=== PATIENT | male | born 1970 | race Two or more races ===

== ENCOUNTER 2025-03-15 19:16 | Inpatient (IN) | payer MEDICARE, MEDICAID ==
[~2025-03-15] VITALS: Ht 170.2 cm; Wt 70.5 kg
--- NOTE | 2025-03-15 19:24 | ECG ---
[facility] Test Date: 2025-03-15 Test Time: 19:16:09 Pat Name: [facility]ER[facility] Department: [facility] ED Patient ID: [id number] Room: 0218T Gender: M Family [employer] Teacher: edlla : 1970 Requested By: HARMONY BLACKWELL Order Number: [id number] Reading MD: Alexandre Hansen Measurements Intervals [place] Rate: 117 P: 34 LA: 162 QRS: 38 QRSD: 93 T: -27 QT: 334 QTc: 466 Interpretive Statements Sinus tachycardia Probable left atrial enlargement Probable left ventricular hypertrophy Borderline T abnormalities, inferior leads Anterior ST elevation, probably due to LVH Baseline wander in lead(s) II,III,aVR,aVF,V1 Electronically Signed On 03-21-2025 21:53:00 PDT by Alexandre Hansen Please click the below link to view image of tracing.
[2025-03-15 19:39] LABS: Hematocrit 38.1 % (41.0-53.0); Hemoglobin 12.8 g/dL (13.5-17.5); Mean Corpuscular Hemoglobin 27.6 pg (28.0-32.0); Mean Corpuscular Volume 81.9 fL (80.0-100.0); Nucleated Red Blood Cells % 0.1 %
[2025-03-15 19:49] LABS: Chloride 100 mmol/L (98-107); Sodium 137 mmol/L (136-145)
--- NOTE | 2025-03-15 19:49 | ED.PDOC ---
SOB-HPI HPI Comments 54-year-old male who came to ER via EMS for shortness a breath. Per EMS, patient is homeless, has a history of hypertension, HIV, and CHF. Has been off his oxygen for the past 2 weeks. Normally on 3 L supplemental oxygen at baseline. Patient coming in for shortness a breath, progressively worsening. Was saturating 84% on room air. Patient is a poor informant. REVIEW OF SYSTEMS: General: No fever, no chills, or fatigue HEENT: No sore throat, no earache, no congestion, no neck pain. Cardiac: No chest pain. No palpitations. Lungs: (+) shortness of breath, no cough. GI: No nausea, no vomiting, no diarrhea, no constipation, no abdominal pain : No dysuria, frequency, or urgency. No hematuria. Musculoskeletal: No joint pain , no joint swelling, no extremity edema. Skin: No rash, no itching. Neuro: No headache, no dizziness, no weakness EXAM: General: Awake, alert and oriented. No acute distress. Skin: Skin in warm, dry and intact. Appropriate color for ethnicity. HEENT: The head is normocephalic and atraumatic. Conjunctivae are clear without exudates or hemorrhage. Sclera is non-icteric. EOM are intact. No signs of nystagmus. Eyelids are normal in appearance without swelling or lesions. Oral mucosa is pink and moist Neck: The neck is supple with normal range of motion. No JVD. Cardiac: Heart rate and rhythm are normal. No murmurs, gallops, or rubs are auscultated. Respiratory: No signs of respiratory distress. Positive rales Abdominal: Abdomen is soft, non-tender without distention. Bowel sounds are present and normoactive in all four quadrants. Extremities: Upper and lower extremities are atraumatic in appearance without deformity or edema. Neurological: The patient is awake, alert and oriented to person, place, and time with normal speech. Speech is clear. There is no facial asymmetry. Chief Complaint: Shortness a breath Time Seen by MD: 19:48 Reviewed notes: Handyman Notes Information Source: Patient, Emergency Med Personnel Mode of Arrival: EMS Past Medical History PAST MEDICAL HISTORY: CHF, HIV, HTN, Liver (Hepatitis-C') Surgical History: Denies all surgeries Family History Family History: Reviewed,noncontributory to illness Social History Smoker: Cigarettes Alcohol: Occasionally Drugs: Marijuana Lives In: Homeless EKG EKG : Pulse Rate (adult): 117 Cardiac Rhythm: ST Comments No STEMI Was a procedure done? Was a procedure done?: No Differential Dx Differential Diagnosis: Asthma, Bronchitis, CHF, COPD, Pneumonia, Respiratory Distress, URI, Other X-Ray, Labs, Meds, VS Vital Signs Date Time Temp Pulse Resp B/P (MAP) Pulse Ox O2 Delivery O2 Flow Rate FiO2 03/15/25 21:21 97.9 113 29 161/110 (127) 95 97.9 03/15/25 19:49 117 03/15/25 19:20 99.1 120 24 182/90 97 99.1 03/15/25 19:20 97 Nasal Cannula* 4 36 03/15/25 19:16 117 Lab Test 03/15/25 22:15 03/15/25 20:31 03/15/25 19:30 Range/Units Troponin I High Sensitivity 45 36 31 </=54 ng/L White Blood Count 10.4 4.4-10.8 10^3/uL Red Blood Count 4.64 4.5-5.90 10^6/uL Hemoglobin 12.8 L 13.5-17.5 g/dL Hematocrit 38.1 L 41.0-53.0 % Mean Corpuscular Volume 81.9 80.0-100.0 fL Mean Corpuscular Hemoglobin 27.6 L 28.0-32.0 pg Mean Corpuscular Hemoglobin Concent 33.7 32.0-36.0 g/dL Red Cell Distribution Width 16.3 H 11.8-14.3 % Platelet Count 416 140-450 10^3/uL Mean Platelet Volume 6.6 L 6.9-10.8 fL Neutrophils (%) (Auto) 74.8 37.0-80.0 % Lymphocytes (%) (Auto) 17.3 10.0-50.0 % Monocytes (%) (Auto) 6.5 0.0-12.0 % Eosinophils (%) (Auto) 0.9 0.0-7.0 % Basophils (%) (Auto) 0.5 0.0-2.0 % Neutrophils # (Auto) 7.8 1.6-8.6 10 ^3/uL Lymphocytes # (Auto) 1.8 0.4-5.4 10 ^3/uL Monocytes # (Auto) 0.7 0-1.3 10 ^3/uL Eosinophils # (Auto) 0.1 0-0.8 10 ^3/uL Basophils # (Auto) 0.1 0-0.2 10 ^3/uL Nucleated Red Blood Cells 0.1 % Sodium Level 137 136-145 mmol/L Potassium Level 3.3 L 3.5-5.1 mmol/L Chloride Level 100 98-107 mmol/L Carbon Dioxide Level 31 20-31 mmol/L Anion Gap 6 5-15 Blood Urea Nitrogen 18 9-23 mg/dL Creatinine 0.57 L 0.700-1.30 mg/dL Glomerular Filtration Rate Calc 117 >90 mL/min BUN/Creatinine Ratio 31.6 H 10.0-20.0 Serum Glucose 111 H 74-106 mg/dL Calcium Level 8.4 L 8.7-10.4 mg/dL B-Type Natriuretic Peptide 296.42 0-100 pg/mL Current Medications Medications (Trade) Dose Ordered Sig/Tor Route Start Time Stop Time Status Last Admin Albuterol (Ventolin Medneb) 2.5 mg ONCE ONCE NEB 03/15/25 19:30 03/15/25 19:31 DC 03/15/25 21:47 Ipratropium [place] (Atrovent Medneb) 0.5 mg ONCE ONCE NEB 03/15/25 19:30 03/15/25 19:31 DC 03/15/25 21:47 CHEST RADIOGRAPH Indication: Shortness of breath Technique: Single frontal view of the chest was obtained COMPARISON: XR CHEST 2 VIEWS on DOS: 03/11/25, XR CHEST 1 VIEW on DOS: 02/26/25 FINDINGS: Cardiac silhouette is enlarged. Diffuse prominence of the pulmonary vasculature and interstitium with patchy ground glass opacity throughout both lungs. Probable trace left pleural fusion Bone density tissues demonstrate no significant abnormality. IMPRESSION: Cardiomegaly with pulmonary vascular congestion and bilateral patchy groundglass opacities. Likely related to alveolar edema although infection could have a katie lar appearance Time of 1ST Reevaluation: 19:46 Reevaluation 1ST: Unchanged Patient Education/Counseling: Need For Follow Up Family Education/Counseling: No Family Present SEPSIS Sepsis Screen Physician Orders Chest Xray 1 View (03/15/25 19:22) Potassium Er Tablet (Klor-Con Tablet) (03/15/25 23:00) Furosemide Injection (Lasix Injection) (03/15/25 23:00) Vital Signs Date Time Temp Pulse Resp B/P (MAP) Pulse Ox O2 Delivery O2 Flow Rate FiO2 03/15/25 21:21 97.9 113 29 161/110 (127) 95 97.9 03/15/25 19:49 117 03/15/25 19:20 99.1 120 24 182/90 97 99.1 03/15/25 19:20 97 Nasal Cannula* 4 36 03/15/25 19:16 117 Laboratory Tests Test 03/15/25 19:30 White Blood Count 10.4 10^3/uL (4.4-10.8) Medications Medications Dose Ordered Sig/Tor Route Start Time Stop Time Status Last Admin Dose Admin Albuterol 2.5 mg ONCE ONCE NEB 03/15/25 19:30 03/15/25 19:31 DC 03/15/25 21:47 Ipratropium [place] 0.5 mg ONCE ONCE NEB 03/15/25 19:30 03/15/25 19:31 DC 03/15/25 21:47 Departure 1 Departure Time of Disposition: 22:55 Impression: Primary Impression: COPD (chronic obstructive pulmonary disease) Additional Impressions: Hypoxia Pulmonary vascular congestion Disposition: ADMITTED INPATIENT Condition: Stable Comments 54-year-old male with a history of COPD, HIV presents with worsening shortness of breath and hypoxia Imaging suggestive of possible pulmonary vascular congestion Patient admitted to hospitalist service for further treatment, evaluation and monitoring. Extensive evaluation was performed in attempt to identify or rule out: (See differential diagnosis section) The following tests were ordered, and results were reviewed by me and discussed with patient: (See diagnostic results section) The following test were independently interpreted by me: EKG I reviewed and agreed with the following test results read by other providers: Chest x-ray I reviewed the following notes from the pt's past medical encounters: N/A Additional information was gathered from interviewing the following independent historians: EMS personnel Discussion of management or test interpretation with external physician/other qualified health healthcare manager: N/A Addressed one or more chronic illnesses with severe exacerbation, progression, or side effects of treatment: COPD Decision regarding hospitalization or escalation of hospital level of care: Risk and benefits of admission for further treatment of patient's condition was considered. Due to patient's current clinical condition, high risk of decline and poor outcome if discharged and need for further inpatient management and monitoring, patient will be admitted to the hospital. Discussed with patient. Drug therapy requiring intensive monitoring for toxicity: IV Lasix Critical Care Note Critical Care Time?: No Stability Stability form required: No Heart Score Heart Score: Heart Score Response (Comments) Value History Moderate Suspicious 1 EKG Repolarization Disturb 1 Age 45-64 1 Risk Factors 1 or 2 risk factors 1 Troponin Normal limit 0 Total 4 I personally scribed for HARMONY BLACKWELL MD ([email or web address]) on 03/15/25 at 19:49. Electronically submitted by Ramon Cabrera ([employer]). I personally scribed for HARMONY BLACKWELL MD ([email or web address]) on 03/15/25 at 20:29. Electronically submitted by Ramon Cabrera ([employer]). HARMONY BLACKWELL MD Mar 15, 2025 19:49
[2025-03-15 19:50] LABS: Anion Gap 6 (5-15)
[2025-03-15 19:52] LABS: Calcium 8.4 mg/dL (8.7-10.4); Carbon Dioxide 31 mmol/L (20-31); Potassium 3.3 mmol/L (3.5-5.1)
[2025-03-15 19:55] LABS: BUN/Creatinine Ratio 31.6 (10.0-20.0); Blood Urea Nitrogen 18 mg/dL (9-23)
[2025-03-15 19:56] LABS: Glucose 111 mg/dL (74-106)
--- NOTE | 2025-03-15 20:16 | DVH ---
CHEST RADIOGRAPH Indication: Shortness of breath Technique: Single frontal view of the chest was obtained COMPARISON: XR CHEST 2 VIEWS on DOS: 03/11/25, XR CHEST 1 VIEW on DOS: 02/26/25 FINDINGS: Cardiac silhouette is enlarged. Diffuse prominence of the pulmonary vasculature and interstitium with patchy ground glass opacity throughout both lungs. Probable trace left pleural fusion Bone density tissues demonstrate no significant abnormality. IMPRESSION: Cardiomegaly with pulmonary vascular congestion and bilateral patchy groundglass opacities. Likely re lated to alveolar edema although infection could have a similar appearance
[2025-03-15] MEDS: ALBUTEROL SULF 2.5 MG/0.5ML(0.5%) NEB SOLN NEB ONE (21:47)
[2025-03-15] MEDS: IPRATROPIUM BROM 0.5 MG/2.5ML INH SOL NEB ONE (21:47)
--- NOTE | 2025-03-15 23:55 | DVHHPRES ---
History of Present Illness Resident Creating Document: MIRIAM MANSFIELD RESIDENT History of Present Illness This is a 54-year-old male with past medical history of hypertension, congestive heart failure, COPD, HIV, hepatitis C to the ER with chief complain of shortness of breaths. The difficulty breathing started suddenly 4 a.m. yesterday morning, associated with nausea, without aggravating or relieving factors. The patient reports he uses 3 L oxygen at home as needed, recently ran out of the oxygen cylinder. Patient reports running out of his home medication for the past 2 wee ks. He also complained of chest pain, described as both sharp and dull, 10 on 10, without aggravating or relieving factors. No history of fever, chills, vomiting. Patient presented with Tachycardia, tachypnea, hypertensive urgency OA. He uses wheelchair for ambulation due to peripheral neuropathy. PMHx: Hypertension, congestive heart failure, HIV, hepatitis-C, chronic peripheral neuropathy (partially wheel chair bound), COPD on home oxygen at 3 L/min PSHx: Appendectomy, gastrostomy, tracheostomy Social history: Reports 2 pack per day for last 40 years. Reports using methamphetamine. Denies alcohol & other recreational drugs. He is unhoused. Full code, next of kin care provider Edwin. Home medication: Biktarvy, Lopressor, amlodipine, albuterol, clonidine, alprazolam, Allergic history: Iodine He was examined at bedside today. He is in apparent respiratory distress and is admitted for further evaluation and management. Review of Systems Respiratory: Shortness of breath, Pleuritic Pain Cardiovascular: Chest Pain Gastrointestinal: Nausea Genitourinary: Incontinence (Intermittent) Allergies: Coded Allergies: Iodine (Verified Allergy, Unknown, 03/15/25) No Known Drug Allergy (Verified Allergy, Unknown, 03/15/25) Exam Vital Signs Vital Signs Date Time Temp Pulse Resp B/P (MAP) Pulse Ox O2 Delivery O2 Flow Rate FiO2 03/15/25 21:21 97.9 113 29 161/110 (127) 95 97.9 03/15/25 21:21 Nasal Cannula* 3 32 Exam General: Patient alert and oriented in person, place and time. Patient following commands. Unkempt. HEENT: Pursed lips. Normocephalic, atraumatic, moist mucous membranes Respiratory/pulmonary: Decreased lungs sounds bilaterally, no associated crackles or wheezes. On nasal cannula at 3 L/min Cardiovascular: S1, S2, S3 heard, without murmurs Abdomen: Diffuse abdominal tenderness on superficial Extremities: There is no peripheral edema present at the lower extremities. Peripheral Pulses: 3+ Radial (R). 3+ Radial (L). 3+ Dorsalis pedis (R). 3+ Dorsalis pedis(L) Skin: Dry, scaly skin Neurological: Reduced power with plantar flexion in bilateral feet. Intact cranial nerves with no focal neurologic deficits Labs/Xrays Labs Test 03/15/25 23:27 03/15/25 22:15 03/15/25 19:30 Range/Units Troponin I High Sensitivity 45 </=54 ng/L White Blood Count 10.4 4.4-10.8 10^3/uL Red Blood Count 4.64 4.5-5.90 10^6/uL Hemoglobin 12.8 L 13.5-17.5 g/dL Hematocrit 38.1 L 41.0-53.0 % Mean Corpuscular Volume 81.9 80.0-100.0 fL Mean Corpuscular Hemoglobin 27.6 L 28.0-32.0 pg Mean Corpuscular Hemoglobin Concent 33.7 32.0-36.0 g/dL Red Cell Distribution Width 16.3 H 11.8-14.3 % Platelet Count 416 140-450 10^3/uL Mean Platelet Volume 6.6 L 6.9-10.8 fL Neutrophils (%) (Auto) 74.8 37.0-80.0 % Lymphocytes (%) (Auto) 17.3 10.0-50.0 % Monocytes (%) (Auto) 6.5 0.0-12.0 % Eosinophils (%) (Auto) 0.9 0.0-7.0 % Basophils (%) (Auto) 0.5 0.0-2.0 % Neutrophils # (Auto) 7.8 1.6-8.6 10 ^3/uL Lymphocytes # (Auto) 1.8 0.4-5.4 10 ^3/uL Monocytes # (Auto) 0.7 0-1.3 10 ^3/uL Eosinophils # (Auto) 0.1 0-0.8 10 ^3/uL Basophils # (Auto) 0.1 0-0.2 10 ^3/uL Nucleated Red Blood Cells 0.1 % Sodium Level 137 136-145 mmol/L Potassium Level 3.3 L 3.5-5.1 mmol/L Chloride Level 100 98-107 mmol/L Carbon Dioxide Level 31 20-31 mmol/L Anion Gap 6 5-15 Blood Urea Nitrogen 18 9-23 mg/dL Creatinine 0.57 L 0.700-1.30 mg/dL Glomerular Filtration Rate Calc 117 >90 mL/min BUN/Creatinine Ratio 31.6 H 10.0-20.0 Serum Glucose 111 H 74-106 mg/dL Calcium Level 8.4 L 8.7-10.4 mg/dL B-Type Natriuretic Peptide 296.42 0-100 pg/mL SEPSIS Sepsis Screen Date sepsis recognized/suspect: Mar 15, 2025 Time Sepsis recognized/suspect: 2120 Recent Procedure: No On Antibiotic Therapy: No Respiratory Rate >20: No Heart Rate >90: No Temp<36 C (96.8 F) or >38.3 C: No SBP <90 or MAP <65 mmHG: No New Acute Mental Status Change: No Is the patient on CPAP, BIPAP,: No Physician Orders Chest Xray 1 View (03/15/25 19:22) Covid19 Antigen Najma (03/15/25 ) Rapid Influenza A&B (03/15/25 22:53) Hepatic Panel (03/15/25 23:19) C-Reactive Protein (03/15/25 23:19) Drug Screen (03/15/25 23:19) Hemoglobin A1c (03/15/25 23:19) Lipase (03/15/25 23:19) Lactic Acid W/ Reflex Order (03/15/25 23:19) Lipid Panel (03/15/25 23:19) Magnesium (03/15/25 23:19) Phosphorus (03/15/25 23:19) PTPTT (03/15/25 23:19) Thyroid Stimulating Hormone (03/15/25 23:19) Urinalysis (03/15/25 23:19) Vitamin D, 25-Hydroxy (03/15/25 23:19) Vitamin B12 (03/15/25 23:19) Admit (03/15/25 23:51) Allergies (03/15/25 23:51) Code Status (03/15/25 23:51) Oxygen Per Hour (03/15/25 23:51) Ondansetron Hcl (Zofran) (03/16/25 00:00) Complete Blood Count (03/16/25 04:00) Comprehensive Metabolic Panel (03/16/25 04:00) Cardiac Diet-2gna,Lofat,Lochol (03/16/25 Breakfast) Echo 2d Mode Cardiac Dop (03/15/25 23:51) Condition: Serious (03/15/25 23:51) Lovenox 40mg (03/16/25 00:00) Vital Signs Date Time Temp Pulse Resp B/P (MAP) Pulse Ox O2 Delivery O2 Flow Rate FiO2 03/15/25 21:21 97.9 113 29 161/110 (127) 95 97.9 03/15/25 21:21 Nasal Cannula* 3 32 03/15/25 19:49 117 03/15/25 19:20 99.1 120 24 182/90 97 99.1 03/15/25 19:20 97 Nasal Cannula* 4 36 03/15/25 19:16 117 Laboratory Tests Test 03/15/25 19:30 03/15/25 23:27 White Blood Count 10.4 10^3/uL (4.4-10.8) Lactic Acid Level Pending Medications Medications Dose Ordered Sig/Tor Route Start Time Stop Time Status Last Admin Dose Admin Albuterol 2.5 mg ONCE ONCE NEB 03/15/25 19:30 03/15/25 19:31 DC 03/15/25 21:47 2.5 MG Ipratropium [place] 0.5 mg ONCE ONCE NEB 03/15/25 19:30 03/15/25 19:31 DC 03/15/25 21:47 0.5 MG Assessment/Plan Assessment/Plan Acute hypoxic respiratory failure Sepsis due to pneumonia Gram-negative/ Gram-positive Acute COPD exacerbation Rapid influenza, COVID-19 serology ordered Blood culture, sputum culture ordered IV ceftriaxone 1 g, azithromycin 500 mg daily Methylprednisolone 40 mg daily Med neb treatment with ipratropium bromide and levoalbuterol Acute on chronic heart failure (pending LVEF) CXR shows cardiomegaly with vascular congestion and bilateral ground-glass opacities EKG shows sinus tachycardia with left ventricular hypertrophy Elevated BNP Echo ordered IV furosemide 20 mg daily., monitor response with strict I&O Monitor on telemetry Normocytic normochromic anemia Ferritin, iron panel, stool occult blood, reticulocyte, haptoglobin Hypokalemia Potassium supplemented Monitor BMP HIV Patient on Biktarvy at home, medication reconciled CD4 count ordered Hypertensive emergency Essential hypertension Amlodipine 5 mg daily Continue monitoring blood pressure History of Peripheral neuropathy partially wheelchair bound Homelessness Evaluate need of PT and marketing services vice president (patient refuses to go to a group home) DIET: Cardiac diet DVT PROPHYLAXIS: Lovenox GI PROPHYLAXIS: Protonix CODE STATUS: Goals of care discussed with patient at bedside for more than 37 minutes. Full code DISPOSITION: Telemetry Patient's status and plan discussed with the patient and nurses. Case discussed with Dr. Guerrero Plan discussed with: Patient, Other (Nurses) My Orders Orders - MIRIAM MANSFIELD RESIDENT Procedure Category Date Status Time Hepatic Panel LAB 03/15/25 In Process 23:19 C-Reactive Protein LAB 03/15/25 In Process 23:19 Drug Screen LAB 03/15/25 Logged 23:19 Hemoglobin A1c LAB 03/15/25 In Process 23:19 Lipase LAB 03/15/25 In Process 23:19 Lactic Acid W/ Reflex LAB 03/15/25 In Process Order 23:19 Lipid Panel LAB 03/15/25 In Process 23:19 Magnesium LAB 03/15/25 In Process 23:19 Phosphorus LAB 03/15/25 In Process 23:19 PTPTT LAB 03/15/25 In Process 23:19 Thyroid Stimulating LAB 03/15/25 In Process Hormone 23:19 Urinalysis LAB 03/15/25 Logged 23:19 Vitamin D, 25-Hydroxy LAB 03/15/25 In Process 23:19 Vitamin B12 LAB 03/15/25 In Process 23:19 Admit ADMIT 03/15/25 Verified 23:51 Allergies KATTY 03/15/25 Verified 23:51 Code Status CODE 03/15/25 Verified 23:51 Oxygen Per Hour RT 03/15/25 Verified 23:51 Ondansetron Hcl PHA 03/16/25 Verified (Zofran) 00:00 Complete Blood Count LAB 03/16/25 Verified 04:00 Comprehensive LAB 03/16/25 Verified Metabolic Panel 04:00 Cardiac DIET 03/16/25 Verified Diet-2gna,Lofat,Lochol Breakfast Echo 2d Mode Cardiac US 03/15/25 Verified DOP 23:51 Condition: Serious KATTY 03/15/25 Verified 23:51 Lovenox 40mg PHA 03/16/25 Verified 00:00 Date of Service: Mar 15, 2025 Billing Provider: ALESSANDRO GUERRERO MD Common Visit Codes: [id number] INP/OBS CARE (HIGH) Secondary Visit Codes: [id number] CARE PLAN 30 MINUTES MIRIAM MANSFIELD RESIDENT Mar 15, 2025 23:55 JOSE A RAYMOND RESIDENT Mar 16, 2025 01:17
[2025-03-15 23:56] LABS: INR 0.97 (0.9-1.15); Partial Thromboplastin Time 25.9 SEC (24.5-34.5); Prothrombin Time 10.3 sec (9.3-11.8)
[2025-03-16] VITALS (12 sets, daily range): BP systolic 135–159; BP diastolic 78–98; PULSE 93–111; RESP 16–22; TEMP 97.9–98.4; O2SAT 94–100
[2025-03-16] LABS: Alanine Aminotransferase 23.0 U/L (7-40); Albumin 3.3 g/dL (3.2-4.8); Alkaline Phosphatase 110.0 U/L (46-116); Bilirubin, Direct 0.1 mg/dL (<0.3); Bilirubin, Total 0.4 mg/dL (0.2-1.0); Cholesterol 174.0 mg/dL (< 200); Magnesium 1.9 mg/dL (1.6-2.6); Total Protein 6.3 g/dL (5.7-8.2); Triglycerides 47.0 mg/dL (< 150)
[2025-03-16] MEDS: ONDANSETRON HCL 4 MG/2 ML VIAL IV SCH
[2025-03-16 00:08] LABS: HDL Cholesterol 64.0 mg/dL (40-59)
[2025-03-16] MEDS ORDERED: MET50T PO (00:15)
[2025-03-16] MEDS ORDERED: BICT1TAB PO (00:15)
[2025-03-16 00:31] LABS: Lipase 28.0 U/L (12-53)
[2025-03-16] MEDS: FUROSEMIDE 40 MG/4 ML VIAL IV ONE ×2 (00:42)
[2025-03-16] MEDS: POTASSIUM CHL 20 Meq TABLET PO ONE (00:43)
[2025-03-16 01:01] LABS: Base Excess 6.2 mmol/L (-2.0-3.0)
[2025-03-16] MEDS: methylPREDNISolone SOD SUCC 40 MG/ML VL IV ONE (01:11)
[2025-03-16] MEDS: ENOXAPARIN SOD 40 MG/0.4 ML SYRINGE SC ONE (01:12)
[2025-03-16 01:15] LABS: Iron 25.0 ug/dL (65-175)
[2025-03-16 01:16] LABS: Total Iron Binding Capacity 308.0 ug/dL (250-425)
[2025-03-16 01:22] LABS: Urine Protein, UAD 2+ (Negative)
[2025-03-16] MEDS: AZITHROMYCIN 500MG/ 250ML 250 ML IV ONE (01:58)
[2025-03-16 03:17] LABS: Amphetamine Screen, Urine Pos (NEGATIVE); Barbiturate Scree,Urine Neg (NEGATIVE); Benzodiazephine Screen, Urine Neg (NEGATIVE); Cannabinoid Screen, Urine Pos (NEGATIVE); Cocaine Screen, Urine Neg (NEGATIVE); Opiate Scree,Urine Neg (NEGATIVE); Phencyclidine Screen, Urine Neg (NEGATIVE)
[2025-03-16 04:04] LABS: Alanine Aminotransferase 26 U/L (7-40); Albumin 3.4 g/dL (3.2-4.8); Alkaline Phosphatase 108 U/L (46-116); Anion Gap 7 (5-15); BUN/Creatinine Ratio 23.4 (10.0-20.0); Blood Urea Nitrogen 15 mg/dL (9-23); Potassium 3.5 mmol/L (3.5-5.1); Sodium 137 mmol/L (136-145); Total Protein 6.6 g/dL (5.7-8.2)
[2025-03-16 04:05] LABS: Bilirubin, Total 0.5 mg/dL (0.2-1.0); Calcium 8.6 mg/dL (8.7-10.4); Carbon Dioxide 32 mmol/L (20-31); Chloride 98 mmol/L (98-107); Glucose 136 mg/dL (74-106)
[2025-03-16 04:42] LABS: Hematocrit 38.3 % (41.0-53.0); Hemoglobin 12.6 g/dL (13.5-17.5); Mean Corpuscular Hemoglobin 27.1 pg (28.0-32.0); Mean Corpuscular Volume 82.3 fL (80.0-100.0); Nucleated Red Blood Cells % 0.1 %
[2025-03-16] MEDS: LEVALBUTEROL HCL 1.25 MG/3 ML NEB NEB SCH (05:18)
[2025-03-16] MEDS: IPRATROPIUM BROM 0.5 MG/2.5ML INH SOL NEB SCH (05:18)
--- NOTE | 2025-03-16 05:49 | DVH ---
CHEST RADIOGRAPH Indication: Acute respiratory failure Technique: Single frontal view of the chest was obtained COMPARISON: XY CHEST XRAY 1 VIEW on DOS: 03/15/25, XR CHEST 2 VIEWS on DOS: 03/11/25, XR CHEST 1 VIEW o n DOS: 02/26/25 FINDINGS: Lines and Tubes: None Lungs: Stable appearing diffuse increased prominence of the pulmonary vasculature and bilateral perih ilar pulmonary airspace disease. Pleura: No effusion. No pneumothorax. Cardiomediastinal contours: Cardiomegaly. Bones: Unremarkable IMPRESSION: 1. Stable diffuse increased prominence of the pulmonary vasculature and bilateral perihilar pulmonary airspace disease. 2. Cardiomegaly.
[2025-03-16 05:59] LABS: COVID19 ANTIGEN SOFIA FIA NEGATIVE (NEGATIVE)
[2025-03-16] MEDS ORDERED: FUROSEMIDE 40 MG/4 ML VIAL IV SCH (06:00)
[2025-03-16] MEDS ORDERED: FUROSEMIDE 20 MG/2 ML VIAL IV SCH (10:00)
[2025-03-16] MEDS: Bictegravir-Emtricitabine-Teno (Biktarvy 50-200-25 mg) TABLET PO SCH (10:00)
[2025-03-16] MEDS: ERGOCALCIFEROL 50,000 UNIT(1.25MG) CAP PO SCH (10:22)
[2025-03-16] MEDS: FUROSEMIDE 20 MG/2 ML VIAL IV SCH (10:24)
--- NOTE | 2025-03-16 13:42 | DVHPN2 ---
Reviewed: Care Plan, H&P, Labs, Medications, Previous Orders, Radiology Changes from previous H/P or p: No Changes Cardiovascular: Chest Pain Respiratory: Shortness of breath, Pleuritic Pain Gastrointestinal: Nausea Genitourinary: Incontinence (Intermittent) Objective Vitals Vital Signs Date Time Temp Pulse Resp B/P (MAP) Pulse Ox O2 Delivery O2 Flow Rate FiO2 03/16/25 11:22 97.9 94 18 135/85 (102) 99 97.9 03/16/25 11:01 Nasal Cannula* 2 28 Intake/Output Intake and Output 03/16/25 07:00 Intake Total 350 ml Output Total 1050 ml Balance -700 ml Intake IV Total 350 ml Output Urine Total 1050 ml Medications Current Medications Medications Dose Ordered Sig/Tor Route Start Time Stop Time Status Last Admin Dose Admin Ondansetron HCl 4 mg Q6HR IV 03/16/25 00:00 Enoxaparin Sodium 40 mg DAILY SC 03/17/25 10:00 Ceftriaxone Sodium 50 ml @ 100 mls/hr DAILY@09 IV 03/17/25 09:00 Azithromycin 250 ml @ 125 mls/hr DAILY IV 03/17/25 10:00 Levalbuterol HCl 1.25 mg Q6HR NEB 03/16/25 00:00 03/16/25 11:01 1.25 MG Ipratropium [place] 0.5 mg Q6HWA NEB 03/16/25 06:00 03/16/25 11:01 0.5 MG Methylprednisolone Sodium Succinate 40 mg DAILY IV 03/17/25 10:00 Amlodipine Besylate 5 mg DAILY PO 03/17/25 10:00 Patient Own Medication 1 tab DAILY PO 03/16/25 10:00 Ergocalciferol 50,000 unit Sa PO 03/16/25 10:00 03/16/25 10:22 50,000 UNIT Furosemide 20 mg DAILY IV 03/16/25 10:00 03/16/25 10:24 20 MG Laboratory Results Laboratory Tests 03/16/25 03:26 Chemistry Test 03/15/25 19:30 03/15/25 23:27 03/16/25 03:26 Calcium Level 8.4 mg/dL (8.7-10.4) L 8.6 mg/dL (8.7-10.4) L Albumin 3.3 g/dL (3.2-4.8) 3.4 g/dL (3.2-4.8) Magnesium Level 1.9 mg/dL (1.6-2.6) Phosphorus Level 4.2 mg/dL (2.4-5.1) Total Protein 6.3 g/dL (5.7-8.2) 6.6 g/dL (5.7-8.2) Coagulation Test 03/15/25 23: Prothrombin Time 10.3 sec (9.3-11.8) Prothrombin Time INR 0.97 (0.9-1.15) Activated Partial Thromboplast Time 25.9 SEC (24.5-34.5) Lipid panel Test 03/15/25 23: Cholesterol Level 174 mg/dL (< 200) HDL Cholesterol 64 mg/dL (40-59) H Lipase 28 U/L (12-53) Triglycerides Level 47 mg/dL (< 150) Cardiac Markers Test 03/15/25 19:30 B-Type Natriuretic Peptide 296.42 pg/mL (0-100) LFT Test 03/15/25 23:27 03/16/25 03:26 Alanine Aminotransferase (ALT) 23 U/L (7-40) 26 U/L (7-40) Alkaline Phosphatase 110 U/L (46-116) 108 U/L (46-116) Aspartate Amino Transferase (AST) 30 U/L (13-40) 30 U/L (13-40) Direct Bilirubin 0.1 mg/dL (<0.3) Total Bilirubin 0.4 mg/dL (0.2-1.0) 0.5 mg/dL (0.2-1.0) HgA1c, TSH Test 03/15/25 23:27 Hemoglobin A1c 5.8 % A1C (<5.7) H Thyroid Stimulating Hormone (TSH) 0.80 uIU/mL (0.55-4.78) Urinalysis Test 03/16/25 00:08 Urine Color Light-yellow (Yellow) Urine Clarity Clear (Clear) Urine pH 7.0 (5.0-9.0) Urine Specific [place] 1.014 (1.001-1.035) Urine Protein 2+ (Negative) H Urine Ketones Negative (Negative) Urine Blood 1+ /uL (Negative) H Urine Nitrite Negative (Negative) Urine Bilirubin Negative (Negative) Urine Urobilinogen Normal mg/dL (Negative) Urine Leukocyte Esterase Negative /uL (Negative) Urine RBC 11 /hpf (0 - 3) Urine Microscopic WBC 2 /HPF (0-3) Urine Squamous Epithelial Cells Few /hpf (<5) Urine Bacteria None seen /hpf (None Seen) Urine Glucose Normal mg/dL (Normal) Blood Gas Results Test 03/16/25 00:53 Arterial Blood pH 7.392 (7.350-7.450) FiO2 % 28.0 Labs and/or images reviewed: Labs reviewed by me, Image(s) reviewed by me Assessment/Plan Assessment/Plan Sepsis secondary to community-acquired pneumonia Gram-positive versus Gram- negative: Rocephin azithromycin Acute on chronic congestive heart failure exacerbation Acute hypoxic respiratory failure: Oxygen by nasal cannula Acute COPD exacerbation: Albuterol Atrovent Solu-Medrol Use of home oxygen 3 L/min Anemia Hypokalemia HIV Hypertensive emergency History of peripheral neuropathy partially wheelchair-bound Homeless Polysubstance abuse: Amphetamine marijuana Time spent 70 minutes Advanced care planning time 20 minutes Patient is full code Plan discussed with: Patient Date of Service: Mar 16, 2025 Billing Provider: ALLYN GREWAL MD Common Visit Codes: [id number] CARE 30-74 MIN ALLYN GREWAL MD Mar 16, 2025 13:42
[2025-03-17] VITALS (17 sets, daily range): BP systolic 133–164; BP diastolic 77–94; PULSE 85–103; RESP 16–22; TEMP 97.9–98.8; O2SAT 96–100
[2025-03-17] MEDS: PANTOPRAZOLE 40 MG TAB PO ONE (00:49)
--- NOTE | 2025-03-17 06:11 | DVH ---
CHEST RADIOGRAPH Indication: Acute respiratory failure Technique: Single frontal view of the chest was obtained Comparison: XY CHEST XRAY 1 VIEW on DOS: 03/16/25, XY CHEST XRAY 1 VIEW on DOS: 03/15/25, XR CHEST 2 EWS on DOS: 03/11/25, XR CHEST 1 VIEW on DOS: 02/26/25, XY CHEST XRAY 1 VIEW on DOS: 03/16/25 FINDINGS: Lines and Tubes: None Lungs: Stable appearing diffuse increased prominence of the pulmonary vasculature and bilateral perih ilar pulmonary airspace disease. Pleura: No effusion. No pneumothorax. Cardiomediastinal contours: Cardiomegaly. Bones: Unremarkable IMPRESSION: 1. Stable diffuse increased prominence of the pulmonary vasculature and bilateral perihilar pulmonary airspace disease. 2. Cardiomegaly.
--- NOTE | 2025-03-17 08:41 | DVHPN2 ---
Reviewed: Care Plan, H&P, Labs, Medications, Previous Orders, Radiology Changes from previous H/P or p: No Changes Cardiovascular: Chest Pain Respiratory: Shortness of breath, Pleuritic Pain Gastrointestinal: Nausea Genitourinary: Incontinence (Intermittent) Objective Vitals Vital Signs Date Time Temp Pulse Resp B/P (MAP) Pulse Ox O2 Delivery O2 Flow Rate FiO2 03/17/25 06:03 92 18 100 03/17/25 05:52 Nasal Cannula* 3 32 03/17/25 05:14 98.2 137/84 (101) 98.2 Intake/Output Intake and Output 03/17/25 07:00 Intake Total 2100 ml Output Total 1950 ml Balance 150 ml Intake Oral 2100 ml Output Urine Total 1950 ml # Voids 7 Medications Current Medications Medications Dose Ordered Sig/Tor Route Start Time Stop Time Status Last Admin Dose Admin Ondansetron HCl 4 mg Q6HR IV 03/16/25 00:00 03/17/25 00:41 4 MG Enoxaparin Sodium 40 mg DAILY SC 03/17/25 10:00 Ceftriaxone Sodium 50 ml @ 100 mls/hr DAILY@09 IV 03/17/25 09:00 Azithromycin 250 ml @ 125 mls/hr DAILY IV 03/17/25 10:00 Levalbuterol HCl 1.25 mg Q6HR NEB 03/16/25 00:00 03/17/25 05:54 1.25 MG Ipratropium [place] 0.5 mg Q6HWA NEB 03/16/25 06:00 03/17/25 00:07 0.5 MG Methylprednisolone Sodium Succinate 40 mg DAILY IV 03/17/25 10:00 Amlodipine Besylate 5 mg DAILY PO 03/17/25 10:00 Patient Own Medication 1 tab DAILY PO 03/16/25 10:00 Ergocalciferol 50,000 unit Sa PO 03/16/25 10:00 03/16/25 10:22 50,000 UNIT Furosemide 20 mg DAILY IV 03/16/25 10:00 03/16/25 10:24 20 MG Laboratory Results Laboratory Tests 03/16/25 03:26 Urinalysis Test 03/16/25 00:08 Urine Color Light-yellow (Yellow) Urine Clarity Clear (Clear) Urine pH 7.0 (5.0-9.0) Urine Specific [place] 1.014 (1.001-1.035) Urine Protein 2+ (Negative) H Urine Ketones Negative (Negative) Urine Blood 1+ /uL (Negative) H Urine Nitrite Negative (Negative) Urine Bilirubin Negative (Negative) Urine Urobilinogen Normal mg/dL (Negative) Urine Leukocyte Esterase Negative /uL (Negative) Urine RBC 11 /hpf (0 - 3) Urine Microscopic WBC 2 /HPF (0-3) Urine Squamous Epithelial Cells Few /hpf (<5) Urine Bacteria None seen /hpf (None Seen) Urine Glucose Normal mg/dL (Normal) Microbiology Microbiology Date/Time Source Procedure Growth Status 03/16/25 00:57 Blood Blood Culture - Preliminary NO GROWTH AFTER 24 HOURS OF INCUBATION. Resulted Labs and/or images reviewed: Labs reviewed by me, Image(s) reviewed by me Assessment/Plan Assessment/Plan Sepsis secondary to community-acquired pneumonia Gram-positive versus Gram- negative: Rocephin azithromycin Acute on chronic congestive heart failure exacerbation Acute hypoxic respiratory failure: Oxygen by nasal cannula Acute COPD exacerbation: Albuterol Atrovent Solu-Medrol Use of home oxygen 3 L/min Anemia Hypokalemia HIV Hypertensive emergency History of peripheral neuropathy partially wheelchair-bound Homeless Polysubstance abuse: Amphetamine marijuana Time spent 55 minutes Advanced care planning time 20 minutes Patient is full code Plan discussed with: Patient My Orders Orders - ALLYN GREWAL MD Procedure Category Date Status Time * [employer] Art [employer] CONS 03/16/25 Transmitted Consult Date of Service: Mar 17, 2025 Billing Provider: ALLYN GREWAL MD Common Visit Codes: [id number] INP/OBS CARE(HIGH) ALLYN GREWAL MD Mar 17, 2025 08:41
--- NOTE | 2025-03-17 09:37 | DVHSR ---
APPROVED REPORT EXAM: Two-dimensional and M-mode echocardiogram with Doppler and color Doppler. Blood Pressure: 138/85 mmHg INDICATION Chest Pain W/ history of CHF RISK FACTORS Height: 5' 7", Weight: 121 DIMENSIONS LVDd4.5 (3.8-5.7cm)LA (2D)3.8 (1.9-4.0cm)Aortic Root4.1 (2.0-3.7cm) LVDs3.6 (2.5-4.0cm)LA (MM) (1.9-4.0cm)Aortic Cusp Exc2.0 (1.5-2.0cm) EF (%) 50.0 (55-70%)Rt. Atrium3.5 (1.9-4.0cm)Asc. Aorta cm IVSd1.3 (0.7-1.1cm)RV (D) (1.8-2.4cm) PWd1.1 (0.7-1.1cm) Mitral Valve MitralMitral Stenosis E wave0.60m/sMV Mean GR.mmHg A wave1.00m/sMV Peak GR.mmHg E/A ratio0.62D MVAcm2 Aortic Valve Aortic ValveAortic Stenosis V10.90m/Thang Mean GR.6mmHg V21.60m/Thang Peak GR.11mmHg LVOT Diameter2.8 (1.8-2.4cm)Doppler AVA3.46cm2 Pulmonic Valve V20.70m/s Conclusion lvef 50% moderate LVH bicuspid aortic valve noted, mild aortic sclerosis and thickening, pt should have routine surveillanc e of this along with first deg relatives
[2025-03-17] MEDS: methylPREDNISolone SOD SUCC 40 MG/ML VL IV SCH (10:15)
[2025-03-17] MEDS: ENOXAPARIN SOD 40 MG/0.4 ML SYRINGE SC SCH (10:20)
[2025-03-17] MEDS: AZITHROMYCIN 500MG/ 250ML 250 ML IV SCH (10:46)
[2025-03-18] VITALS (15 sets, daily range): BP systolic 132–157; BP diastolic 77–97; PULSE 12–94; RESP 12–99; TEMP 97.6–98.4; O2SAT 94–100
--- NOTE | 2025-03-18 05:46 | DVH ---
CHEST RADIOGRAPH Indication: Acute respiratory failure Technique: Single frontal view of the chest was obtained COMPARISON: XY CHEST XRAY 1 VIEW on DOS: 03/17/25, XY CHEST XRAY 1 VIEW on DOS: 03/16/25, XY CHEST XRAY 1 VIEW on DOS: 03/15/25, XR CHEST 2 VIEWS on DOS: 03/11/25, CT ANGIO CHEST - PULMONARY on DOS: 02/26/25 FINDINGS: Lines and Tubes: None Lungs: Diffuse fibrotic appearing increased prominence of the pulmonary interstitium. Increased promi nence of the bilateral perihilar vascular structures. No definite evidence of focal consolidation. Pleura: No effusion. No pneumothorax. Cardiomediastinal contours: Cardiomegaly. Bones: Unremarkable IMPRESSION: 1. Cardiomegaly with findings suggestive of pulmonary vascular congestion. 2. Fibrotic appearing diffuse increased prominence of the pulmonary interstitium. 3. Cardiomegaly.
[2025-03-18] MEDS: LEVALBUTEROL HCL 1.25 MG/3 ML NEB NEB SCH (06:33)
--- NOTE | 2025-03-18 10:45 | DVHPN2 ---
Reviewed: Care Plan, H&P, Labs, Medications, Previous Orders, Radiology Changes from previous H/P or p: No Changes Cardiovascular: Chest Pain Respiratory: Shortness of breath, Pleuritic Pain Gastrointestinal: Nausea Genitourinary: Incontinence (Intermittent) Objective Vitals Vital Signs Date Time Temp Pulse Resp B/P (MAP) Pulse Ox O2 Delivery O2 Flow Rate FiO2 03/18/25 09:12 157/97 03/18/25 09:00 98.0 76 12 98 98.0 03/18/25 06:36 Nasal Cannula 2.0 03/18/25 06:36 28 Intake/Output Intake and Output 03/18/25 07:00 Intake Total 3100 ml Output Total 2550 ml Balance 550 ml Intake Oral 3050 ml IV Total 50 ml Output Urine Total 2550 ml # Voids 5 Medications Current Medications Medications Dose Ordered Sig/Tor Route Start Time Stop Time Status Last Admin Dose Admin Ondansetron HCl 4 mg Q6HR IV 03/16/25 00:00 03/18/25 05:25 4 MG Enoxaparin Sodium 40 mg DAILY SC 03/17/25 10:00 03/18/25 09:11 40 MG Ceftriaxone Sodium 50 ml @ 100 mls/hr DAILY@09 IV 03/17/25 09:00 03/18/25 09:10 100 MLS/HR Azithromycin 250 ml @ 125 mls/hr DAILY IV 03/17/25 10:00 03/17/25 10:46 125 MLS/HR Ipratropium [place] 0.5 mg Q6HWA NEB 03/16/25 06:00 03/18/25 06:33 0.5 MG Methylprednisolone Sodium Succinate 40 mg DAILY IV 03/17/25 10:00 03/18/25 09:12 40 MG Amlodipine Besylate 5 mg DAILY PO 03/17/25 10:00 03/18/25 09:12 5 MG Patient Own Medication 1 tab DAILY PO 03/16/25 10:00 Ergocalciferol 50,000 unit Sa PO 03/16/25 10:00 03/16/25 10:22 50,000 UNIT Furosemide 20 mg DAILY IV 03/16/25 10:00 03/18/25 09:11 20 MG Levalbuterol HCl 1.25 mg Q6HWA NEB 03/18/25 06:00 Laboratory Results Laboratory Tests 03/16/25 03:26 Urinalysis Test 03/16/25 00:08 Urine Color Light-yellow (Yellow) Urine Clarity Clear (Clear) Urine pH 7.0 (5.0-9.0) Urine Specific [place] 1.014 (1.001-1.035) Urine Protein 2+ (Negative) H Urine Ketones Negative (Negative) Urine Blood 1+ /uL (Negative) H Urine Nitrite Negative (Negative) Urine Bilirubin Negative (Negative) Urine Urobilinogen Normal mg/dL (Negative) Urine Leukocyte Esterase Negative /uL (Negative) Urine RBC 11 /hpf (0 - 3) Urine Microscopic WBC 2 /HPF (0-3) Urine Squamous Epithelial Cells Few /hpf (<5) Urine Bacteria None seen /hpf (None Seen) Urine Glucose Normal mg/dL (Normal) Microbiology Microbiology Date/Time Source Procedure Growth Status 03/16/25 12:00 Nose MRSA Screen - Final Complete 03/16/25 00:57 Blood Blood Culture - Preliminary NO GROWTH AFTER 48 HOURS OF INCUBATION. Resulted 03/16/25 00:08 Voided Urine Urine Culture - Final Complete Labs and/or images reviewed: Labs reviewed by me, Image(s) reviewed by me Assessment/Plan Assessment/Plan Sepsis secondary to community-acquired pneumonia Gram-positive versus Gram- negative: Rocephin azithromycin Acute on chronic congestive heart failure exacerbation Acute hypoxic respiratory failure: Oxygen by nasal cannula Acute COPD exacerbation: Albuterol Atrovent Solu-Medrol Use of home oxygen 3 L/min Anemia Hypokalemia HIV Hypertensive emergency History of peripheral neuropathy partially wheelchair-bound Polysubstance abuse: Amphetamine marijuana Time spent 55 minutes Advanced care planning time 20 minutes Patient is full code Patient is willing to be discharged to care home facility for IV antibiotics for two weeks for pneumonia Physical therapy ordered Plan discussed with: Patient My Orders Orders - ALLYN GREWAL MD Procedure Category Date Status Time Insert Midline ORDERS 03/18/25 Transmitted 10:33 Pt Request For Service PT 03/18/25 Logged 10:33 Date of Service: Mar 18, 2025 Billing Provider: ALLYN GREWAL MD Common Visit Codes: [id number] INP/OBS CARE(HIGH) ALLYN GREWAL MD Mar 18, 2025 10:45
[2025-03-19] VITALS (13 sets, daily range): BP systolic 138–162; BP diastolic 80–95; PULSE 72–94; RESP 14–20; TEMP 98.3–98.5; O2SAT 97–100
--- NOTE | 2025-03-19 08:03 | DVH ---
CHEST RADIOGRAPH Indication: Acute respiratory failure Technique: Single frontal view of the chest was obtained Comparison: XY CHEST XRAY 1 VIEW on DOS: 03/18/25 FINDINGS: Lines and Tubes: None Lungs: Bilateral interstitial and alveolar opacities are unchanged. Pleura: No effusion. No pneumothorax. Cardiomediastinal contours: Cardiomegaly. Bones: No acute osseous abnormality. IMPRESSION: 1. No significant change in bilateral interstitial
[2025-03-19] MEDS ORDERED: AZIT500T66 PO (10:20)
[2025-03-19] MEDS ORDERED: ALBUAER3 IN (10:20)
[2025-03-19] MEDS ORDERED: PRED20TA2 PO (10:20)
--- NOTE | 2025-03-19 10:25 | DVHDS2 ---
Discharge Summary Date of Admission Mar 15, 2025 at 23:51 Date of Discharge: Mar 19, 2025 Admitting Diagnosis Shortness of breath Wounds: None Labs/Diagnostic Data: Laboratory Results Test 03/16/25 03:26 03/16/25 01:40 03/16/25 00:53 03/16/25 00:08 Mean Platelet Volume 7.1 fL (6.9-10.8) Neutrophils # (Auto) 10.7 10 ^3/uL (1.6-8.6) Lymphocytes # (Auto) 0.9 10 ^3/uL (0.4-5.4) Monocytes # (Auto) 0.2 10 ^3/uL (0-1.3) Eosinophils # (Auto) 0.1 10 ^3/uL (0-0.8) Basophils # (Auto) 0.1 10 ^3/uL (0-0.2) Sodium Level 137 mmol/L (136-145) Potassium Level 3.5 mmol/L (3.5-5.1) Chloride Level 98 mmol/L (98-107) Carbon Dioxide Level 32 mmol/L (20-31) Anion Gap 7 (5-15) Blood Urea Nitrogen 15 mg/dL (9-23) Creatinine 0.64 mg/dL (0.700-1.30) Glomerular Filtration Rate Calc 113 mL/min (>90) BUN/Creatinine Ratio 23.4 (10.0-20.0) Serum Glucose 136 mg/dL (74-106) Calcium Level 8.6 mg/dL (8.7-10.4) Total Bilirubin 0.5 mg/dL (0.2-1.0) Aspartate Amino Transferase (AST) 30 U/L (13-40) Alanine Aminotransferase (ALT) 26 U/L (7-40) Alkaline Phosphatase 108 U/L (46-116) Total Protein 6.6 g/dL (5.7-8.2) Albumin 3.4 g/dL (3.2-4.8) Influenza Type A Antigen Negative (Negative) Influenza Type B Antigen Negative (Negative) SARS-CoV-2 Antigen (Rapid) Negative (NEGATIVE) Blood Gas Specimen Type Arterial Blood Gas Sample Site Left radial Blood Gas Patient Temperature 37.0 Arterial Blood Date Drawn [id number] Arterial Blood pH 7.392 (7.350-7.450) Arterial Blood Partial Pressure CO2 54.7 mmHg (35.0-48.0) Arterial Blood Partial Pressure O2 109.4 mmHg (83.0-108.0) Arterial Blood HCO3 32.5 mmol/L (21.0-28.0) Arterial Blood Oxygen Saturation 98.0 % (94.0-98.0) Arterial Blood Base Excess 6.2 mmol/L (-2.0-3.0) Arterial Blood Oxyhemoglobin 96.9 % (94.0-98.0) Arterial Blood Carboxyhemoglobin 0.5 % (0.5-1.5) Arterial Blood Methemoglobin 0.6 % (0.0-1.5) Isai Test Yes Blood Gas Total Hemoglobin 12.40 g/dL (13.5-17.5) Blood Gas Modality Nasal cannula FiO2 % 28.0 Blood Gas Critical Value Read Back Yes Urine Color Light-yellow (Yellow) Urine Clarity Clear (Clear) Urine pH 7.0 (5.0-9.0) Urine Specific [place] 1.014 (1.001-1.035) Urine Protein 2+ (Negative) Urine Ketones Negative (Negative) Urine Blood 1+ /uL (Negative) Urine Nitrite Negative (Negative) Urine Bilirubin Negative (Negative) Urine Urobilinogen Normal mg/dL (Negative) Urine Leukocyte Esterase Negative /uL (Negative) Urine RBC 11 /hpf (0 - 3) Urine Microscopic WBC 2 /HPF (0-3) Urine Squamous Epithelial Cells Few /hpf (<5) Urine Bacteria None seen /hpf (None Seen) Urine Glucose Normal mg/dL (Normal) Urine Opiates Screen Neg (NEGATIVE) Urine Fentanyl Screen Neg (NEGATIVE) Urine Barbiturates Screen Neg (NEGATIVE) Urine Phencyclidine Screen Neg (NEGATIVE) Urine Amphetamines Screen Pos (NEGATIVE) Urine Benzodiazepines Screen Neg (NEGATIVE) Urine Cocaine Screen Neg (NEGATIVE) Urine Cannabinoids Screen Pos (NEGATIVE) Test 03/15/25 23:27 03/15/25 22:15 03/15/25 19:30 Reticulocyte Count (auto) 1.31 % (0.5-1.5) Haptoglobin 168 mg/dL (29-370) Prothrombin Time 10.3 sec (9.3-11.8) Prothrombin Time INR 0.97 (0.9-1.15) Activated Partial Thromboplast Time 25.9 SEC (24.5-34.5) Hemoglobin A1c 5.8 % A1C (<5.7) Lactic Acid Level 0.9 mmol/L (0.4-2.0) Phosphorus Level 4.2 mg/dL (2.4-5.1) Magnesium Level 1.9 mg/dL (1.6-2.6) Iron Level 25 ug/dL (65-175) Total Iron Binding Capacity 308 ug/dL (250-425) Percent Iron Saturation 8.1 % (20-55) Ferritin 18.1 ng/mL (22-322) Direct Bilirubin 0.1 mg/dL (<0.3) C-Reactive Protein High Sensitivity 1.47 mg/dL (<1.0) Triglycerides Level 47 mg/dL (< 150) Cholesterol Level 174 mg/dL (< 200) LDL Cholesterol 98 mg/dL (< 100) HDL Cholesterol 64 mg/dL (40-59) Lipase 28 U/L (12-53) Vitamin B12 Level 308 pg/mL (211-911) Vitamin D 25-Hydroxy 27.3 ng/mL (30.0-100) Thyroid Stimulating Hormone (TSH) 0.80 uIU/mL (0.55-4.78) Troponin I High Sensitivity 45 ng/L (</=54) B-Type Natriuretic Peptide 296.42 pg/mL (0-100) Other Laboratory Tests 03/16/25 03:26 Brief Hx & Hospital Course: 54-year-old male with a history of COPD CHF use of home oxygen anemia HIV hypokalemia hypotension peripheral neuropathy partially wheelchair-bound polysubstance abuse including amphetamine and marijuana came in for shortness of breaths found to have sepsis secondary to community-acquired pneumonia Gram- positive versus g negative treated with Rocephin azithromycin. Patient feels better afebrile on 2 L of oxygen which is his usual home requirement. Counseled about quitting using street drugs. Discharged home. Prescription for azithromycin Ventolin MDI prednisone tablets transmitted to pharmacy. general condition satisfactory at the time of discharge. Consults/Reason for consult None Operations or Procedures None Condition at Discharge: Fair Final Diagnosis/Problems List Assessment/Plan Sepsis secondary to community-acquired pneumonia Gram-positive versus Gram-negative: Rocephin azithromycin Acute on chronic congestive heart failure exacerbation Acute hypoxic respiratory failure: Oxygen by nasal cannula Acute COPD exacerbation: Albuterol Atrovent Solu-Medrol Use of home oxygen 3 L/min Anemia Hypokalemia HIV Hypertensive emergency History of peripheral neuropathy partially wheelchair-bound Polysubstance abuse: Amphetamine marijuana Discharge Disposition: Home Discharge Instruct/Medications Diet: Cardiac 2g Na,low cholest Activity: Light activity Follow Up/Referral: Follow up with the discharge clinic in one week Medications: Azithromycin Prednisone Albuterol MDI Transmitted to pharmacy Scheduled Albuterol Sulfate (Ventolin Mdi), 90 MCG IN QID Azithromycin (Azithromycin), 1 TAB PO DAILY [id number]-Txefeoxtnrodc-Dylh (Biktarvy 50-200-25 mg), 1 TAB PO DAILY, (Reported) Metoprolol Tartrate (Lopressor Tablet), 1 TAB PO BID, (Reported) Prednisone (Prednisone), 20 MG PO DAILY 39 (Time taken for discharge summary 39 minutes) Discharge Statement: "Patient was advised to return to the ER or call 911 if any headaches, dizziness, shortness of breath, chest pain, abdominal pain, bleeding, fevers, or worsening of medical condition. Patient was counseled about treatment plan, medications, possible side effects, patientverbalized understanding. All questions were answered to the best of my ability. This discharge took greater then 30 minutes in planning, reviewing documentation, counseling the patient, and discussing with other team members." ASSESSMENT ASSESSMENT Hospital Course Improved Assessment Assessment/Plan Sepsis secondary to community-acquired pneumonia Gram-positive versus Gram- negative: Rocephin azithromycin Acute on chronic congestive heart failure exacerbation Acute hypoxic respiratory failure: Oxygen by nasal cannula Acute COPD exacerbation: Albuterol Atrovent Solu-Medrol Use of home oxygen 3 L/min Anemia Hypokalemia HIV Hypertensive emergency History of peripheral neuropathy partially wheelchair-bound Polysubstance abuse: Amphetamine marijuana Date of Service: Mar 19, 2025 Billing Provider: ALLYN GREWAL MD Common Visit Codes: [id number] DISCH DAY >30min ALLYN GREWAL MD Mar 19, 2025 10:25
== END 2025-03-19 17:28 | disposition home or self-care (01) | DRG 871 ==
LOC: ER 19:16 → EDBD 19:16 → OVERFLOW 23:51 → TELE-CENTR 03-16 13:46
PROVIDERS: ADMIT Family Medicine; ATTEND Family Medicine
PROC: 05HA33Z Insertion of Infusion Device into Left Brachial Vein, Percutaneous Approach (ICD-10-PCS; principal; 2025-03-18)
PROC: B54NZZA Ultrasonography of Left Upper Extremity Veins, Guidance (ICD-10-PCS; 2025-03-18)
DX: A41.59 Other Gram-negative sepsis (principal); I50.33 Acute on chronic diastolic (congestive) heart failure; J15.69 Pneumonia due to other Gram-negative bacteria; J96.01 Acute respiratory failure with hypoxia; J15.9 Unspecified bacterial pneumonia; I16.1 Hypertensive emergency; J44.1 Chronic obstructive pulmonary disease with (acute) exacerbation; Z59.00 Homelessness unspecified; J44.0 Chronic obstructive pulmonary disease with (acute) lower respiratory infection; D64.9 Anemia, unspecified; E87.6 Hypokalemia; F17.210 Nicotine dependence, cigarettes, uncomplicated; G62.9 Polyneuropathy, unspecified; I11.0 Hypertensive heart disease with heart failure; Z99.3 Dependence on wheelchair; Z79.899 Other long term (current) drug therapy
CPT/HCPCS: 36415; 36600; 71045; 80048; 80053; 80061; 80076; 80307; 81001; 82306; 82607; 82728; 82805; 83010; 83036; 83540; 83550; 83605; 83690; 83735; 83880; 84100; 84132; 84443; 84484; 85025; 85045; 85610; 85730; 86141; 86360; 87040; 87081; 87086; 87426; 87804; 93005; 93306; 94640; 96374; 97163; G0378; J2405